=== PATIENT | male | born 1935 | race Caucasian/White ===

== ENCOUNTER → 2017-03-18 | Outpatient (CLI) | payer MEDICARE, BC ==
[2017-03-18 11:50] LABS: Prostate Specific Antigen 0.14 ng/mL (0.00-4.00)
== END | disposition home or self-care (01) ==
LOC: LABWHC1 09:24
PROVIDERS: ATTEND Urology
DX: C61 Malignant neoplasm of prostate (principal)
CPT/HCPCS: 36415; 84153; 84403

== ENCOUNTER 2018-07-10 11:09 | Day surgery (SDC) | payer MEDICARE, BC ==
[2018-07-07 11:16] VITALS: BMI 33.0
[~2018-07-10 11:09] MED LIST: DEXAMETHASONE SOD PHOSPHATE 10 MG/ML 1 ML VIAL IV ONE; HEPARIN SODIUM,PORCINE 5,000 UNIT/ML 1 ML VIAL SQ ONE; HYDROmorphone 0.5 MG/0.5 ML SYRINGE IVP PRN; LACTATED RINGERS 1,000 ML IV SCH; MIDAZOLAM 2 MG/2 ML VIAL IV PRN; ONDANSETRON 4 MG/2 ML VIAL IVP ONE; Pre Op ABX Message 1 EACH MISC MISCELLANE ONE
[2018-07-10] MEDS ORDERED: LIDOCAINE 1% 20 ML VIAL (10MG/ML) FOR IV START INTRADERMA ONE (11:44)
[2018-07-10] MEDS ORDERED: ceFAZolin IN SWFI 2 GM/20 ML SYRINGE IVP STA (12:25)
[2018-07-10] MEDS ORDERED: BUPIVACAIN-EPI 0.25%-1:200,000 30 ML VIAL SQ ONE ×3 (12:40)
[2018-07-10] MEDS ORDERED: fentaNYL (PF) 50 MCG/ML 2 ML AMP ONE (12:46)
[2018-07-10] MEDS ORDERED: PROPOFOL 10 MG/ML 20 ML VIAL IV ONE (12:46)
[2018-07-10] MEDS ORDERED: MIDAZOLAM 2 MG/2 ML VIAL ONE (12:46)
[2018-07-10] MEDS ORDERED: NALOXONE 0.4 MG/ML 1 ML VIAL IV PRN (13:28)
--- NOTE | 2018-07-10 13:30 | P.OP ---
Date of Procedure: 07/10/18 Procedure(s) Performed: PREOPERATIVE DIAGNOSIS: Posterior neck sebaceous cyst POSTOPERATIVE DIAGNOSIS: Same PROCEDURE: Excision with intermediate closure 2.5 cm SURGEON: Gutierrez EBL: 2 mL ANESTHESIA: Sedation plus local COMPLICATIONS: None OPERATIVE PROCEDURE: Patient placed in the left decubitus position. The posterior neck was prepped and draped in usual sterile fashion. The skin was localized. An elliptical incision encompassing a portion of the overlying skin took place removing the skin and underlying sebaceous cyst. The cyst measured 2.2 cm in size. This was fully excised. This was sent to pathology. The subcutaneous tissues were reapproximated using interrupted 3-0 Vicryl sutures. The closure length 2.5 cm. Skin was closed with 4-0 Monocryl sutures. Skin glue was then used. DISPOSITION: Stable to recovery room
[2018-07-10 13:37] VITALS: RESP 18
[2018-07-10 13:52] VITALS: BP 136/78; PULSE 67
== END 2018-07-10 14:14 | disposition home or self-care (01) ==
LOC: OR 11:09
PROVIDERS: ATTEND Surgery
DX: L72.0 Epidermal cyst (principal); I10 Essential (primary) hypertension; M19.90 Unspecified osteoarthritis, unspecified site; E78.5 Hyperlipidemia, unspecified; Z79.82 Long term (current) use of aspirin; Z79.899 Other long term (current) drug therapy; Z85.46 Personal history of malignant neoplasm of prostate
CPT/HCPCS: 88304; 11423; 12041; J2250; J1644; J1100; J0690; J2405; J3010; J2704

== ENCOUNTER → 2019-05-26 | Outpatient (CLI) | payer MEDICARE, BC | END | disposition home or self-care (01) | LOC: LABWHC1 07:05 | PROVIDERS: ATTEND Urology | DX: C61 Malignant neoplasm of prostate (principal); C79.51 Secondary malignant neoplasm of bone | CPT/HCPCS: 36415; 82310; 84153; 84403 ==

== ENCOUNTER → 2020-04-06 | Outpatient (CLI) | payer MEDICARE, BC ==
--- NOTE | 2020-04-06 16:00 | NM ---
EXAMINATION TYPE: NM bone scan whole body DATE OF EXAM: 04/06/2020 COMPARISON: NONE HISTORY: Prostate cancer Delayed whole-body scanning was performed following the injection of 24.6 mCi Tc 99m MDP. Images acq uired 3.5 hours post injection. FINDINGS: There is a focus of radiotracer accumulation in the left axillary region. This may be associated with the left scapula. There is increased radiotracer accumulation over the left iliac wing suspicious for metastatic diseas e. There is increased radiotracer accumulation within the regions of L2 and L4. Metastatic disease and c ompression deformities could be considered. Bilateral knee prostheses are evident. There is some increased radiotracer accumulation along the rig ht lateral distal femur may be related to the knee prosthesis. IMPRESSION: 1. Radiotracer accumulation within the left axillary region and at the left iliac superior wing suspi cious for metastatic disease. 2. Uptake within the L2 and L4 regions of the lumbar spine could be related to compression deformitie s and/or metastatic disease. 3. Uptake at the right knee distal right femoral region. Uptake related to prosthesis is felt to be m ore remote given the timeframe. Metastatic disease should be considered. Recommendations: 1. Plain film correlation of the lumbar spine, pelvis, right knee is recommended. 2. CT may better localize suspected left axillary uptake. 3. PET/CT may be useful as an alternative for evaluation of these findings.
== END | disposition home or self-care (01) ==
LOC: RADNMMAIN 10:00
PROVIDERS: ATTEND Urology
DX: C61 Malignant neoplasm of prostate (principal)
CPT/HCPCS: 78306; A9503

== ENCOUNTER → 2020-04-11 | Outpatient (CLI) | payer MEDICARE, BC ==
--- NOTE | 2020-04-11 14:45 | XR ---
EXAMINATION TYPE: XR knee complete RT DATE OF EXAM: 04/11/2020 CLINICAL HISTORY: pain TECHNIQUE: Three views of the right knee are obtained. COMPARISON: None. FINDINGS: There is no acute fracture/dislocation. Total knee arthroplasty with femoral and tibial co mponents appearing well seated. The overlying soft tissue appears unremarkable. IMPRESSION: There is no acute fracture or dislocation.ICD 10 NO FRACTURE, INITIAL EVALUATION
--- NOTE | 2020-04-11 14:45 | XR ---
EXAMINATION TYPE: XR pelvis AP view DATE OF EXAM: 04/11/2020 CLINICAL HISTORY: pain TECHNIQUE: Single view the pelvis is submitted. FINDINGS: No evidence for fracture, dislocation or bony lesion. Joint spaces are well-preserved. S I joints appear symmetric. IMPRESSION: 1. No acute fracture or dislocation seen. ICD 10 NO FRACTURE, INITIAL EVALUATION
--- NOTE | 2020-04-11 15:05 | XR ---
EXAMINATION TYPE: XR sacrum coccyx DATE OF EXAM: 04/11/2020 CLINICAL HISTORY: pain TECHNIQUE: Three views of the sacrum and coccyx are submitted. COMPARISON: None Sacral alae appear symmetric. No evidence for fracture or bony lesion. Sacroiliac joints are within normal limits. Visualized coccygeal segments are free of fracture or lesion. IMPRESSION: Normal study
--- NOTE | 2020-04-11 16:43 | XR ---
Thoracic spine and lumbar spine HISTORY: D 49.4, abnormal bone scan Correlation bone scan 04/06/2020 3 views of the thoracic spine, 3 views of the lumbar spine Thoracic and lumbar spondylosis is present, there is mild spinal curvature. Bone mineralization is re duced. Loss of disc height at intervertebral levels compatible degenerative disc disease. Bandlike area of radio pharmaceutical uptake present at the upper and lower lumbar spine are more typ ical of endplate compression deformities, some mild loss of height suspected L5, mild superior endpla te deformity questioned at L1. Multilevel vacuum phenomenon present at the intervertebral levels the lumbar spine. Loss of disc height is present at intervertebral levels of the lumbar spine. IMPRESSION: No convincing metastatic disease.
== END | disposition home or self-care (01) ==
LOC: RADXRMAIN 13:20
PROVIDERS: ATTEND Urology
DX: C61 Malignant neoplasm of prostate (principal)
CPT/HCPCS: 72072; 72100; 72170; 72220

== ENCOUNTER → 2021-03-21 | Outpatient (CLI) | payer MEDICARE, BC | END | disposition home or self-care (01) | LOC: LABWHC1 07:09 | PROVIDERS: ATTEND Urology | DX: C61 Malignant neoplasm of prostate (principal) | CPT/HCPCS: 36415; 84153 ==

== ENCOUNTER → 2022-06-06 | Outpatient (CLI) | payer MEDICARE, BC ==
[2022-06-06 15:33] LABS: Calcium 9.6 mg/dL (8.7-10.3); Prostate Specific Antigen 0.2 ng/mL (0.00-6.50); Testosterone 3.98 ng/mL (86.98-780.10)
== END | disposition home or self-care (01) ==
LOC: LABWHC1 09:25
PROVIDERS: ATTEND Urology
DX: C61 Malignant neoplasm of prostate (principal)
CPT/HCPCS: 36415; 82310; 84153; 84403

== ENCOUNTER → 2023-01-18 | Outpatient (CLI) | payer MEDICARE ==
--- NOTE | 2023-01-18 07:50 | CT ---
EXAMINATION TYPE: CT foot LT wo con DATE OF EXAM: 01/18/2023 COMPARISON: None HISTORY: eval for lower heel deysi placement CT DLP: 299 mGycm Automated exposure control for dose reduction was used. Contrast: None Technique: Axial images 0.5 mm thick sections. 3-D reconstructive images were obtained. Reconstructed images in the coronal and sagittal plane are obtained. FINDINGS: There is a medullary deysi which extends through the tibia and talus to the calcaneus. Fixation screws are present. Distal medullary deysi tip appears to be just below the inferior calcaneal cortex. No acut e fractures are evident. Extensive changes are present within the talus and tibia. Old arthrodesis th rough this region is likely present. Three-D reconstructed images performed by the technologist on a separate computer are reviewed. IMPRESSION: 1. MEDULLARY DEYSI WITHIN THE CALCANEUS WITH THE DISTAL TIP NEAR THE INFERIOR CALCANEAL CORTEX. FIXATIO N SCREWS ARE PRESENT.
== END | disposition home or self-care (01) ==
LOC: RADCTMAIN 07:01
PROVIDERS: ATTEND Orthopaedic Surgery Foot and Ankle Surgery
DX: S92.002A Unspecified fracture of left calcaneus, initial encounter for closed fracture (principal); M14.872 Arthropathies in other specified diseases classified elsewhere, left ankle and foot

== ENCOUNTER → 2023-03-08 | Outpatient (CLI) | payer MEDICARE ==
--- NOTE | 2023-03-08 09:39 | XR ---
EXAMINATION TYPE: XR abdomen 2V DATE OF EXAM: 03/08/2023 8:22 AM INDICATION: Patient age:Male; 87 years old; Reason for study: R14.0; COMPARISON: None. TECHNIQUE: Two views of the abdomen were obtained. FINDINGS: The bowel gas pattern is nonspecific without dilated loops of small or large bowel. There i s no evidence for organomegaly or pneumoperitoneum. The osseous structures are intact. Multilevel di sc degeneration changes of the spine. Calcifications project over the left kidney suggesting renal ca lculi. Fecal material and gas are demonstrated throughout the colon and rectum. IMPRESSION: 1. Nonspecific bowel gas pattern without radiographic evidence for acute process. 2. The level disc degeneration changes throughout spine. 3. Left renal calculi suggested. Consider CT renal stone protocol if further evaluation is required.
== END | disposition home or self-care (01) ==
LOC: RADXRMAIN 08:00
PROVIDERS: ATTEND Family Medicine
DX: R14.0 Abdominal distension (gaseous) (principal)
CPT/HCPCS: 74019

== ENCOUNTER → 2023-03-19 | Outpatient (CLI) | payer MEDICARE ==
[2023-03-19 14:48] LABS: African American GFR (CKD) 89 (>60 ml/min/1.73 sqM); Blood Urea Nitrogen 29 mg/dL (9-20); Non-African American GFR(CKD) 77 (>60 ml/min/1.73 sqM)
--- NOTE | 2023-03-20 12:43 | CT ---
EXAMINATION TYPE: CT abdomen pelvis wo/w con CT DLP: 3898 mGycm, Automated exposure control for dose reduction was used. DATE OF EXAM: 03/19/2023 4:07 PM COMPARISON: None. CLINICAL INDICATION:Male, 87 years old with history of R10.9; bloating, abd pain x5 weeks, h/o prosta te CA TECHNIQUE: Axial CT of the abdomen and pelvis. Sagittal and coronal reformats were created on a [employer] workstation. 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 Coronary artery calcifications and atherosclerosis. ABDOMEN LIVER: Nodular contour to liver with no mass visualized. There is suspected cyst present. GALLBLADDER AND BILE DUCTS: Unremarkable. PANCREAS: Unremarkable. SPLEEN: Probable cysts noted. Abnormal pancreatic tail appearance measuring at least 4.6 x 3.1 cm. Co mpared to the rest of the greater gland. ADRENAL GLANDS: Unremarkable. KIDNEYS AND URETERS: No evidence of hydronephrosis or renal calculus. Bilateral renal cysts some with calcification along the periphery measuring up to 8.9 cm on the left and 5. Potassium is in the righ t PELVIS BLADDER: Unremarkable REPRODUCTIVE: Prostate is enlarged in size measuring 4.6 cm in transverse dimension. ABDOMEN & PELVIS STOMACH AND BOWEL: No evidence of bowel obstruction. PERITONEUM/RETROPERITONEUM: No evidence of pneumoperitoneum or free fluid. VASCULATURE: No evidence of abdominal aortic aneurysm. MUSCULOSKELETAL: No acute osseous abnormalities. Moderate disc degeneration changes are present throu ghout the thoracolumbar spine. LYMPH NODES: No gross evidence for lymphadenopathy. SOFT TISSUE/ABDOMINAL WALL: Bilateral fat-containing inguinal hernias. IMPRESSION: 1. Pancreatic masslike area measuring 4.6 x 3.1 cm. Further evaluation recommended with MRI renal ma ss protocol. Comparisons with priors may be of benefit for stability. 2. Hepatic cirrhosis with ascites. 3. 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 4. Bilateral renal cyst with thin septations along the periphery. 5. Large left fat-containing inguinal hernia. 6. Prostatomegaly correlate serum PSA.
== END | disposition home or self-care (01) ==
LOC: RADCTMAIN 13:57
PROVIDERS: ATTEND Family Medicine
DX: I71.21 Aneurysm of the ascending aorta, without rupture (principal); K40.90 Unilateral inguinal hernia, without obstruction or gangrene, not specified as recurrent; K74.60 Unspecified cirrhosis of liver; N28.1 Cyst of kidney, acquired; N40.0 Benign prostatic hyperplasia without lower urinary tract symptoms; R18.8 Other ascites; Z85.46 Personal history of malignant neoplasm of prostate
CPT/HCPCS: 82565; 84520; 74178; 36415; Q9967

== ENCOUNTER 2023-03-20 15:36 | Inpatient (IN) | payer MEDICARE ==
[2023-03-20] MEDS ORDERED: SODIUM CHLORIDE 0.9% 1,000 ML IV STA (18:10)
[2023-03-20 19:52] LABS: ALT 20 U/L (4-49); AST 39 U/L (17-59); African American GFR (CKD) >90 (>60 ml/min/1.73 sqM); Albumin 3.6 g/dL (3.5-5.0); Alkaline Phosphatase 71 U/L (38-126); Amylase 45 U/L (30-110); Anion Gap 12 mmol/L; Blood Urea Nitrogen 30 mg/dL (9-20); Calcium 9.5 mg/dL (8.4-10.2); Carbon Dioxide 20 mmol/L (22-30); Chloride 98 mmol/L (98-107); Glucose 108 mg/dL (74-99); Lipase 118 U/L (23-300); Non-African American GFR(CKD) 81 (>60 ml/min/1.73 sqM); Sodium 130 mmol/L (137-145); Total Bilirubin 0.8 mg/dL (0.2-1.3); Total Protein 6.2 g/dL (6.3-8.2)
--- NOTE | 2023-03-20 20:16 | CT ---
EXAMINATION TYPE: CT abdomen pelvis wo con CT DLP: 1491.2 mGycm, Automated exposure control for dose reduction was used. DATE OF EXAM: 03/20/2023 7:42 PM COMPARISON: CT abdomen pelvis most recent from one day prior CLINICAL INDICATION:Male, 87 years old with history of abdominal pain; Bloating, abdomen pain x5wks. Hx of prostate CA. TECHNIQUE: Axial CT of the abdomen and pelvis. Sagittal and coronal reformats were created on a [employer] workstation. Contrast used: mL of , (none if empty) Oral contrast used: without Oral Contrast (none if empty) FINDINGS: LOWER CHEST: Ascending thoracic aorta aneurysm measuring up to 5.4, previously 5.8 cm. Likely due to differences in phases of cardiac heartbeat. Coronary artery calcifications and atherosclerosis. Fluid tracks along the distal esophagus ABDOMEN LIVER: Nodular contour to liver with no mass visualized. There is suspected cyst present. GALLBLADDER AND BILE DUCTS: Unremarkable. PANCREAS: Unremarkable. SPLEEN: Probable cysts noted. Abnormal pancreatic tail appearance measuring at least 4.6 x 3.1 cm. Co mpared to the rest of the greater gland. ADRENAL GLANDS: Unremarkable. KIDNEYS AND URETERS: No evidence of hydronephrosis or renal calculus. Bilateral renal cysts some with calcification along the periphery measuring up to 8.9 cm on the left and 5. Potassium is in the righ t PELVIS BLADDER: Excreted IV contrast and a nondistended urinary bladder. REPRODUCTIVE: Prostate is enlarged in size measuring 4.6 cm in transverse dimension. ABDOMEN & PELVIS STOMACH AND BOWEL: No evidence of bowel obstruction. PERITONEUM/RETROPERITONEUM: No evidence of pneumoperitoneum or free fluid. Omental edema is present VASCULATURE: No evidence of abdominal aortic aneurysm. MUSCULOSKELETAL: No acute osseous abnormalities. Moderate disc degeneration changes are present throu ghout the thoracolumbar spine. LYMPH NODES: No gross evidence for lymphadenopathy. SOFT TISSUE/ABDOMINAL WALL: Bilateral fat-containing inguinal hernias. IMPRESSION: Essentially no change from one day prior 1. Pancreatic masslike area measuring 4.6 x 3.1 cm. Further evaluation recommended with MRI renal ma ss protocol. Comparisons with priors may be of benefit for stability. 2. Hepatic cirrhosis with large ascites. 3. 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 4. Bilateral renal cyst with thin septations along the periphery. 5. Large left fat-containing inguinal hernia. 6. Prostatomegaly correlate serum PSA.
[2023-03-20 20:20] LABS: Basophils % (A) 0 %; Eosinophils # (A) 0.2 k/uL (0-0.7); Eosinophils % (A) 1 %; HCT 42.7 % (39.0-53.0); HGB 14.1 gm/dL (13.0-17.5); Lymphocytes # (A) 1.3 k/uL (1.0-4.8); Lymphocytes % (A) 9 %; MCH 30.6 pg (25.0-35.0); MCV 92.7 fL (80.0-100.0); Mean Platelet Volume 7.5; Monocytes # (A) 0.9 k/uL (0-1.0); Monocytes % (A) 6 %; Neutrophils # (A) 12.2 k/uL (1.3-7.7); Neutrophils % (A) 83 %; Platelet Count 504 k/uL (150-450); RBC 4.61 m/uL (4.30-5.90); WBC 14.6 k/uL (3.8-10.6)
--- NOTE | 2023-03-20 20:28 | ED ---
Abdominal Pain HPI - General Chief Complaint: Abdominal Pain Stated Complaint: Chest [place],Stomach issues Time Seen by Provider: 03/20/23 18:08 Source: patient, family, RN notes reviewed, old records reviewed Mode of arrival: wheelchair Limitations: no limitations - History of Present Illness Initial Comments: This is a 87-year-old male who presents today for evaluation of abdominal pain significant abdominal swelling which is severe, patient also severe abdominal pain in nature has had imaging testing done as an outpatient computed for recurrent testing today. Patient states he can't comfortable can't sit rate cancer flat can't take a deep breath secondary severe pain belly swelling. No prior history of similar, no history of ascites MD Complaint: abdominal pain -: hour(s), days(s) Location: diffuse Radiation: epigastric, suprapubic Migration to: epigastric, suprapubic Severity: moderate Severity scale (1-10): 7 Quality: stabbing, aching, fullness Consistency: constant Improves With: nothing Worsens With: nothing Context: sick contacts Associated Symptoms: nausea, vomiting Treatments Prior to Arrival: other (0) - Related Data Home Medications Medication Instructions Recorded Confirmed Celecoxib [CeleBREX] 200 mg PO DAILY 06/21/14 03/20/23 Aspirin [Adult Low Dose Aspirin EC] 81 mg PO DAILY 05/15/16 03/20/23 Glucosam/Constantino-Msm1/C/Julio/Bosw 1 tab PO DAILY 05/15/16 03/20/23 [Glucosamine-Chondroitin Tablet] Multivitamins, Thera [Multivitamin 1 tab PO DAILY 05/15/16 03/20/23 (formulary)] Tamsulosin [Flomax] 0.4 mg PO DAILY 05/15/16 03/20/23 Bicalutamide [Casodex] 50 mg PO DAILY 07/07/18 03/20/23 Denosumab [Prolia] 60 mg SQ Q180D 07/07/18 03/20/23 Docusate Sodium [Dok] 200 mg PO DAILY 07/07/18 03/20/23 Krill Oil 500 mg PO DAILY 07/07/18 03/20/23 calcium polycarbophiL [Fibercon] 625 mg PO DAILY 07/07/18 03/20/23 Cholecalciferol [Vitamin D3 (25 25 mcg PO DAILY 03/20/23 03/20/23 Mcg = 1000 Iu)] Cyanocobalamin (Vitamin B-12) 2,500 mcg PO DAILY 03/20/23 03/20/23 [Vitamin B-12] Triptorelin Pamoate [Trelstar] 3.75 mg IV Q180D 03/20/23 03/20/23 lisinopriL 30 mg PO DAILY 03/20/23 03/20/23 Allergies Allergy/AdvReac Type Severity Reaction Status Date / Time No Known Allergies Allergy Verified 03/20/23 20:20 Review of Systems ROS Statement: Those systems with pertinent positive or pertinent negative responses have been documented in the HPI. ROS Other: All systems not noted in ROS Statement are negative. Past Medical History Past Medical History: Cancer, Hypertension, Osteoarthritis (OA), Prostate Disorder Additional Past Medical History / Comment(s): Constipation. Enlarged prostate. CA PROSTATE 2016 EST. "SPOT AT T6 VERTEBRAE." BORDERLINE HYPERLIPIDEMIA. SEBACEOUS CYST NECK. History of Any Multi-Drug Resistant Organisms: None Reported Past Surgical History: Hernia Repair, Joint Replacement, Orthopedic Surgery Additional Past Surgical History / Comment(s): Edilson knee replacements, ORIF Edilson ankles(lynette and screws), Edilson cataracts. HERNIA'S. FINGER SURGERY. Past Anesthesia/Blood Transfusion Reactions: No Reported Reaction Past Psychological History: No Psychological Hx Reported Past Alcohol Use History: None Reported Past Drug Use History: None Reported - Past Family History Mother Family Medical History: Cancer Father Family Medical History: Cancer Son(s) Family Medical History: Deep Vein Thrombosis (DVT) General Exam Limitations: no limitations General appearance: alert, in no apparent distress, anxious Head exam: Present: atraumatic, normocephalic, normal inspection Eye exam: Present: normal appearance, PERRL, EOMI. Absent: scleral icterus, conjunctival injection, periorbital swelling ENT exam: Present: normal exam, mucous membranes moist Neck exam: Present: normal inspection. Absent: tenderness, meningismus, lymphadenopathy Respiratory exam: Present: normal lung sounds bilaterally. Absent: respiratory distress, wheezes, rales, rhonchi, stridor Cardiovascular Exam: Present: regular rate, normal rhythm, normal heart sounds. Absent: systolic murmur, diastolic murmur, rubs, gallop, clicks GI/Abdominal exam: Present: soft, distended, tenderness, guarding, rebound, normal bowel sounds, other (This is likely significant ascites). Absent: rigid Extremities exam: Present: normal inspection, full ROM, normal capillary refill. Absent: tenderness, pedal edema, joint swelling, calf tenderness Back exam: Present: normal inspection Neurological exam: Present: alert, oriented X3, CN II-XII intact Psychiatric exam: Present: normal affect, normal mood Skin exam: Present: warm, dry, intact, normal color. Absent: rash Course Vital Signs 03/20/23 03/20/23 15:39 21:12 Temperature 96.8 F L Pulse Rate 89 86 Respiratory 18 18 Rate Blood Pressure 135/79 116/82 O2 Sat by Pulse 96 98 Oximetry - Reevaluation(s) Reevaluation #1: 03/20/23 22:16 Medical record is reviewed Reevaluation #2: 03/20/23 22:16 A shunt informed results questions answered Reevaluation #3: 03/20/23 22:16 Patient with severe pain and shortness of breath Reevaluation #4: 03/20/23 22:19 Was pt. sent in by a medical professional or institution? @ -no Did you speak to anyone other than the patient for history? @ -no Did you review nursing and triage notes? @ -agree Were old charts reviewed? @ -no Differential Diagnosis? @ -prior EKG interpreted by me (3pts min.)? @ -no X-rays interpreted by me (1pt min.)? @ -no CT interpreted by me (1pt min.)? @ -yes U/S interpreted by me (1pt. min.)? @ -no What testing was considered but not performed? (CT, X-rays, U/S, labs)? Why? @ -no What meds were considered but not given? Why? @ -no Did you discuss the management of the patient with other professionals? @ -no Did you reconcile home meds? @ -no Was smoking cessation discussed for >3mins.? @ -no Was critical care preformed (if so, how long)? @ -no Were there social determinants of health that impacted care today? How? (Homelessness, low income, unemployed, alcoholism, drug addiction, transportation, low edu. Level, literacy, decrease access to med. care, detention, rehab)? @ -no Was there de-escalation of care discussed even if they declined? (Discuss DNR or withdrawal of care, Hospice)? @ -no What co-morbidities impacted this encounter? (DM, HTN, Smoking, COPD, CAD, Cancer, CVA, Hep., AIDS, mental health diagnosis, sleep apnea, morbid obesity)? @ -none Was patient admitted / discharged? @ -87 male to the ER and has severe abdominal pain. Severe ascites will admit for paracentesis diagnosis of ascites cause Admitted Undiagnosed new problem with uncertain prognosis? @ -no Drug Therapy requiring intensive monitoring for toxicity (Heparin, Nitro, Insulin, Cardizem)? @ -no Were any procedures done? @ -no Diagnosis/symptom? @ -Acute ascites secondary to pancreatic cancer Acute, or Chronic, or Acute on Chronic? @ -no Uncomplicated (without systemic symptoms) or Complicated (systemic symptoms)? @ -uncomplicated Side effects of treatment? @ -no Exacerbation, Progression, or Severe Exacerbation] @ -no Poses a threat to life or bodily function? @ -no not immediate future Reevaluation #5: 03/20/23 22:19 Differential Abdominal Pain Men: Appendicitis, cholecystitis, diverticulosis, ischemic bowel, pancreatitis, hepatitis, UTI, gastroenteritis, AAA, incarcerated hernia, bowel obstruction, constipation, inflammatory bowel, hepatitis, peptic ulcer disease, splenic infarction, perforated viscus, testicular torsion, this is not meant to be an all-inclusive list - Consultations Consultation #1: Spoke with admitting physicians agreeable to admit this patient Medical Decision Making - Medical Decision Making 87 male to the ER and has severe abdominal pain. Severe ascites will admit for paracentesis diagnosis of ascites cause - Lab Data Result diagrams: 03/21/23 06:17 03/21/23 06:17 Lab Results 03/20/23 03/20/23 03/20/23 Range/Units 19:11 19:11 19:11 WBC 14.6 H (3.8-10.6) k/uL RBC 4.61 (4.30-5.90) m/uL Hgb 14.1 (13.0-17.5) gm/dL Hct 42.7 (39.0-53.0) % MCV 92.7 (80.0-100.0) fL MCH 30.6 (25.0-35.0) pg MCHC 33.0 (31.0-37.0) g/dL RDW 13.0 (11.5-15.5) % Plt Count 504 H (150-450) k/uL MPV 7.5 Neutrophils % 83 % Lymphocytes % 9 % Monocytes % 6 % Eosinophils % 1 % Basophils % 0 % Neutrophils # 12.2 H (1.3-7.7) k/uL Lymphocytes # 1.3 (1.0-4.8) k/uL Monocytes # 0.9 (0-1.0) k/uL Eosinophils # 0.2 (0-0.7) k/uL Basophils # 0.0 (0-0.2) k/uL Sodium 130 L (137-145) mmol/L Potassium 5.0 (3.5-5.1) mmol/L Chloride 98 (98-107) mmol/L Carbon Dioxide 20 L (22-30) mmol/L Anion Gap 12 mmol/L BUN 30 H (9-20) mg/dL Creatinine 0.75 (0.66-1.25) mg/dL Est GFR (CKD-EPI)AfAm >90 (>60 ml/min/1.73 sqM) Est GFR (CKD-EPI)NonAf 81 (>60 ml/min/1.73 sqM) Glucose 108 H (74-99) mg/dL Plasma Lactic Acid Celestine (0.7-2.0) mmol/L Calcium 9.5 (8.4-10.2) mg/dL Total Bilirubin 0.8 (0.2-1.3) mg/dL AST 39 (17-59) U/L ALT 20 (4-49) U/L Alkaline Phosphatase 71 (38-126) U/L Troponin I 0.019 (0.000-0.034) ng/mL Total Protein 6.2 L (6.3-8.2) g/dL Albumin 3.6 (3.5-5.0) g/dL Amylase 45 (30-110) U/L Lipase 118 (23-300) U/L Urine Color Urine Appearance (Clear) Urine pH (5.0-8.0) Ur Specific [place] (1.001-1.035) Urine Protein (Negative) Urine Glucose (UA) (Negative) Urine Ketones (Negative) Urine Blood (Negative) Urine Nitrite (Negative) Urine Bilirubin (Negative) Urine Urobilinogen (<2.0) mg/dL Ur Leukocyte Esterase (Negative) Urine RBC (0-5) /hpf Urine WBC (0-5) /hpf Ur Squamous Epith Cells (0-4) /hpf Urine Bacteria (None) /hpf Urine Mucus (None) /hpf 03/20/23 03/20/23 Range/Units 20:07 21:16 WBC (3.8-10.6) k/uL RBC (4.30-5.90) m/uL Hgb (13.0-17.5) gm/dL Hct (39.0-53.0) % MCV (80.0-100.0) fL MCH (25.0-35.0) pg MCHC (31.0-37.0) g/dL RDW (11.5-15.5) % Plt Count (150-450) k/uL MPV Neutrophils % % Lymphocytes % % Monocytes % % Eosinophils % % Basophils % % Neutrophils # (1.3-7.7) k/uL Lymphocytes # (1.0-4.8) k/uL Monocytes # (0-1.0) k/uL Eosinophils # (0-0.7) k/uL Basophils # (0-0.2) k/uL Sodium (137-145) mmol/L Potassium (3.5-5.1) mmol/L Chloride (98-107) mmol/L Carbon Dioxide (22-30) mmol/L Anion Gap mmol/L BUN (9-20) mg/dL Creatinine (0.66-1.25) mg/dL Est GFR (CKD-EPI)AfAm (>60 ml/min/1.73 sqM) Est GFR (CKD-EPI)NonAf (>60 ml/min/1.73 sqM) Glucose (74-99) mg/dL Plasma Lactic Acid Celestine 2.0 (0.7-2.0) mmol/L Calcium (8.4-10.2) mg/dL Total Bilirubin (0.2-1.3) mg/dL AST (17-59) U/L ALT (4-49) U/L Alkaline Phosphatase (38-126) U/L Troponin I (0.000-0.034) ng/mL Total Protein (6.3-8.2) g/dL Albumin (3.5-5.0) g/dL Amylase (30-110) U/L Lipase (23-300) U/L Urine Color Yellow Urine Appearance Cloudy (Clear) Urine pH 5.5 (5.0-8.0) Ur Specific [place] 1.044 H (1.001-1.035) Urine Protein Trace H (Negative) Urine Glucose (UA) Negative (Negative) Urine Ketones Negative (Negative) Urine Blood Negative (Negative) Urine Nitrite Negative (Negative) Urine Bilirubin Negative (Negative) Urine Urobilinogen <2.0 (<2.0) mg/dL Ur Leukocyte Esterase Negative (Negative) Urine RBC 5 (0-5) /hpf Urine WBC 2 (0-5) /hpf Ur Squamous Epith Cells 1 (0-4) /hpf Urine Bacteria Rare H (None) /hpf Urine Mucus Many H (None) /hpf - Radiology Data Radiology results: report reviewed (CT of the abdomen and pelvis suffers from significant ascites and pancreatic mass), image reviewed Disposition Clinical Impression: Abdominal pain, Ascites, Mass of pancreas Disposition: ADMITTED IP TO THIS [facility] Condition: Fair Is patient prescribed a controlled substance at d/c from ED?: No Time of Disposition: 21:40
[2023-03-20] MEDS ORDERED: NALOXONE 0.4 MG/ML 1 ML VIAL IV PRN (21:42)
[2023-03-20] MEDS ORDERED: MORPHINE SULFATE 4 MG/ML SYRINGE IV PRN (21:42)
[2023-03-20] MEDS ORDERED: ONDANSETRON 4 MG/2 ML VIAL IVP PRN (21:42)
[2023-03-20] MEDS ORDERED: LORazepam 0.5 MG TAB PO PRN (21:42)
[2023-03-20 21:58] LABS: Appearance,Urine Cloudy (Clear); Bacteria,Urine Rare /hpf; Bilirubin,Urine Negative (Negative); Blood,Urine Negative (Negative); Color,Urine Yellow; Glucose,Urine (UA) Negative (Negative); Ketones,Urine Negative (Negative); Leukocyte Esterase,Urine Negative (Negative); Mucus,Urine Many /hpf; Nitrite,Urine Negative (Negative); PH, Urine 5.5 (5.0-8.0); Protein,Urine Trace (Negative); RBC,Urine 5 /hpf (0-5); Specific Gravity,Urine 1.044 (1.001-1.035); Squamous Epithelial Cell,Urine 1 /hpf (0-4); Urobilinogen,Urine <2.0 mg/dL (<2.0); WBC,Urine 2 /hpf (0-5)
[2023-03-21 06:55] LABS: Basophils % (A) 0 %; Eosinophils # (A) 0.1 k/uL (0-0.7); Eosinophils % (A) 1 %; HCT 40.7 % (39.0-53.0); HGB 13.2 gm/dL (13.0-17.5); Lymphocytes # (A) 1.1 k/uL (1.0-4.8); Lymphocytes % (A) 9 %; MCH 29.9 pg (25.0-35.0); MCHC 32.4 g/dL (31.0-37.0); MCV 92.4 fL (80.0-100.0); Mean Platelet Volume 7.2; Monocytes # (A) 0.7 k/uL (0-1.0); Monocytes % (A) 6 %; Neutrophils # (A) 10.4 k/uL (1.3-7.7); Neutrophils % (A) 84 %; Platelet Count 441 k/uL (150-450); RDW 13.3 % (11.5-15.5); WBC 12.5 k/uL (3.8-10.6)
[2023-03-21 07:26] LABS: ALT 19 U/L (4-49); AST 32 U/L (17-59); African American GFR (CKD) 89 (>60 ml/min/1.73 sqM); Albumin 3.4 g/dL (3.5-5.0); Alkaline Phosphatase 67 U/L (38-126); Anion Gap 11 mmol/L; Blood Urea Nitrogen 31 mg/dL (9-20); Calcium 9.2 mg/dL (8.4-10.2); Carbon Dioxide 24 mmol/L (22-30); Chloride 96 mmol/L (98-107); Glucose 101 mg/dL (74-99); Magnesium 2.3 mg/dL (1.6-2.3); Non-African American GFR(CKD) 77 (>60 ml/min/1.73 sqM); Potassium 4.9 mmol/L (3.5-5.1); Sodium 131 mmol/L (137-145); Total Bilirubin 0.9 mg/dL (0.2-1.3); Total Protein 5.9 g/dL (6.3-8.2)
[2023-03-21] MEDS ORDERED: MELOXICAM 7.5 MG TAB PO SCH (09:00)
[2023-03-21] MEDS ORDERED: lisinopriL 10 MG TAB PO SCH (09:00)
[2023-03-21] MEDS ORDERED: CYANOCOBALAMIN 500 MCG TAB PO SCH (09:00)
[2023-03-21] MEDS ORDERED: CHOLECALCIFEROL 25 MCG (1000 IU) TABLET PO SCH (09:00)
[2023-03-21] MEDS ORDERED: TAMSULOSIN 0.4 MG CAP.ER.24H PO SCH (09:00)
[2023-03-21] MEDS ORDERED: MULTIVITAMINS, THERA 1 EACH TAB PO SCH (09:00)
[2023-03-21] MEDS ORDERED: BICALUTAMIDE 50 MG TAB PO SCH (09:00)
[2023-03-21] MEDS ORDERED: DOCUSATE 100 MG CAP PO SCH (09:00)
[2023-03-21] MEDS ORDERED: NON FORMULARY DRUG (Krill Oil [Krill Oil] 500 MG Capsule) PO SCH (09:00)
[2023-03-21] MEDS ORDERED: NON FORMULARY DRUG (Glucosam/Chon-Msm1/C/Mang/Bosw [Glucosamine-Chondroitin Tablet] 1 EACH PO SCH (09:00)
[2023-03-21 09:50] LABS: Partial Thromboplastin Time 24.6 sec (22.0-30.0); Prothrombin Time 10.7 sec (9.0-12.0)
[2023-03-21] MEDS ORDERED: HYDROmorphone 0.5 MG/0.5 ML SYRINGE IVP PRN (10:32)
[2023-03-21] MEDS ORDERED: HYDROcodone/APAP 5-325MG 1 EACH TAB PO PRN (10:32)
--- NOTE | 2023-03-21 11:43 | HP ---
HISTORY AND PHYSICAL CHIEF COMPLAINT: Abdominal pain and distention. HISTORY OF PRESENT ILLNESS: This is an 87-year-old gentleman with a past medical history of multiple medical problems including hypertension. He had a previous history of CA prostate, had a recent surgery on the left foot. The patient had progressive abdominal distention and pain. The patient came to [facility], and a CT scan of the abdomen and pelvis showed pancreatic mass and as well as hepatic cirrhosis with ascites, ascending thoracic aortic aneurysm, and multiple abnormalities also. The patient was admitted for further evaluation and treatment. There is no history of any fever, rigor, or chills at this time. PAST MEDICAL HISTORY: History of prostate cancer and hypertension. Rest of the history and rest of the chart are also reviewed. HOME MEDICATIONS: Reviewed, lisinopril. Doses and rest of the medications are reviewed. ALLERGIES: None. FAMILY HISTORY: No history of cancer in the family. SOCIAL HISTORY: No history of smoking or alcohol. REVIEW OF SYSTEMS: Fourteen-point review is negative except as mentioned earlier. PHYSICAL EXAMINATION: VITAL SIGNS: Pulse 98, blood pressure 121/82, respirations 20. HEENT: Conjunctivae are normal. NECK: No jugular venous distention. CARDIOVASCULAR: No murmur. RESPIRATORY: Breath sounds diminished at the bases. ABDOMEN: Soft, distended, tense. Ascites present. Nontender. No guarding. No rigidity. Bowel sounds diminished. LEGS: Left foot is status post surgery, on the cast. NERVOUS SYSTEM: No focal deficits. SKIN: No ulcers or rashes. JOINTS: No active deforming arthropathy. LABORATORY DATA: WBC 12.5. Rest of the labs are noted. ASSESSMENT: 1. Abdominal distention and pain with ascites, possibly a malignant ascites versus cirrhosis liver with ascites. 2. Pancreatic mass. 3. History of prostate cancer. 4. Hypertension. 5. History of degenerative joint disease. 6. History of constipation. 7. Multiple medical issues. RECOMMENDATIONS AND DISCUSSION: In this 87-year-old gentleman presented with multiple complex medical issues, we will monitor the patient closely. Consult Interventional Radiology for therapeutic and diagnostic aspiration. Send the fluid for culture and as well as cytology. Obtain Surgical evaluation also. Symptomatic treatment. Home medications will be continued. Pain management. Prognosis is guarded because of multiple complex medical issues. Further recommendations to follow. See orders for further details. MMODL / IJN: [id number] /
[2023-03-21 14:13] VITALS: RESP 17; TEMP 97.9
--- NOTE | 2023-03-21 14:32 | US ---
Ultrasound-guided paracentesis. DATE OF EXAM: 03/21/2023 CLINICAL HISTORY: Ascites The procedure was discussed with the patient. The risks, complications, benefits, and alternatives we re discussed and any questions were answered. Informed consent was obtained. The patient was placed s upine on the ultrasound table and prepped and draped in the usual sterile fashion. All elements of maximal barrier technique were utilized. Under ultrasound guidance, access into the right lower quadrant was obtained, via the paracentesis catheter system and direct ultrasound guidanc e. Approximately 10.2 liters of straw-colored fluid was removed. The patient was stable throughout the p rocedure and remained stable upon discharge from Department of Radiology. IMPRESSION: Successful paracentesis under ultrasound guidance.
[2023-03-21] MEDS: ALBUMIN HUMAN 25% 50 ML in EMPTY BAG 1 BAG IVPB SCH ×4 (15:13→17:02)
[2023-03-21 15:35] VITALS: PULSE 108
[2023-03-21 15:36] VITALS: BP 96/58
--- NOTE | 2023-03-21 21:50 | P.DS ---
Providers Date of admission: 03/20/23 21:43 Expected date of discharge: 03/21/23 Attending physician: Asim Roberson Primary care physician: Duc Schaffer [facility] Course: Final diagnosis Abdominal distention with pain with ascites possibly a malignant ascites versus cirrhosis of the liver ascites status post approximately 12 L removed paracentesis Pancreatic mass noted on CT History of prostate cancer Hypertension History of degenerative joint disease History of constipation GI prophylaxis DVT prophylaxis Full code Discharge disposition Patient is being discharged in a stable condition with guarded prognosis to home. Patient will follow-up with Dr. Schaffer in the outpatient setting upon discharge. Patient is to follow-up with urology along with oncology out of [facility] as scheduled. Total time taken is greater than 35 minutes. Hospital course This is a 87-year-old male who was recently admitted with abdominal pain and distention noted to have significant ascites status post paracentesis with approximately 12 L removed. Patient did receive albumin post paracentesis. Concerns for malignancy and also noted to have a pancreatic mass noted on CT. Patient reports to feeling significantly improved post paracentesis will like to go home and follow-up outpatient. Currently no reports of chest pain, shortness of breath, or palpitations. Patient is afebrile. No reports of nausea or vomiting and patient is tolerating diet. Patient will be discharged home today. Physical exam: Gen: This is a 87-year-old male, awake, alert and oriented 3, well-developed, well-nourished, obese HEENT: Head is atraumatic, normocephalic. Pupils equal, round. Sclerae is anicteric. NECK: Supple. No JVD. No lymphadenopathy. No thyromegaly. LUNGS: Clear to auscultation. No wheezes or rhonchi. No intercostal retractions. HEART: Regular rate and rhythm. No murmur. ABDOMEN: Somewhat taut, distended, tympanic Bowel sounds are present. No masses. No tenderness. EXTREMITIES: No pedal edema. No calf tenderness. NEUROLOGICAL: Patient is awake, alert and oriented x3. Cranial nerves 2 through 12 are grossly intact. Please refer to medication reconciliation sheet for a list of medications. The impression and plan of care has been dictated by Lucinda Kline, Nurse Practitioner as directed. Dr. Da MD I have performed a history and examination and MDM of this patient, discussed the same with the dictator, and agree with the dictator's assessment and plan as written ,documented as a scribe. Based on total visit time, I have performed more than 50% of the visit. Patient Condition at Discharge: Fair Plan - Discharge Summary Discharge Rx Participant: No New Discharge Prescriptions: Continue Celecoxib [CeleBREX] 200 mg PO DAILY Tamsulosin [Flomax] 0.4 mg PO DAILY Glucosam/Constantino-Msm1/C/Julio/Bosw [Glucosamine-Chondroitin Tablet] 1 tab PO DAILY Aspirin [Adult Low Dose Aspirin EC] 81 mg PO DAILY Multivitamins, Thera [Multivitamin (formulary)] 1 tab PO DAILY Bicalutamide [Casodex] 50 mg PO DAILY calcium polycarbophiL [Fibercon] 625 mg PO DAILY Denosumab [Prolia] 60 mg SQ Q180D Docusate Sodium [Dok] 200 mg PO DAILY Krill Oil 500 mg PO DAILY lisinopriL 30 mg PO DAILY Cyanocobalamin (Vitamin B-12) [Vitamin B-12] 2,500 mcg PO DAILY Cholecalciferol [Vitamin D3 (25 Mcg = 1000 Iu)] 25 mcg PO DAILY Triptorelin Pamoate [Trelstar] 3.75 mg IV Q180D Discharge Medication List Celecoxib [CeleBREX] 200 mg PO DAILY 06/21/14 [History] Aspirin [Adult Low Dose Aspirin EC] 81 mg PO DAILY 05/15/16 [History] Glucosam/Constantino-Msm1/C/Julio/Bosw [Glucosamine-Chondroitin Tablet] 1 tab PO DAILY 05/15/16 [History] Multivitamins, Thera [Multivitamin (formulary)] 1 tab PO DAILY 05/15/16 [History] Tamsulosin [Flomax] 0.4 mg PO DAILY 05/15/16 [History] Bicalutamide [Casodex] 50 mg PO DAILY 07/07/18 [History] Denosumab [Prolia] 60 mg SQ Q180D 07/07/18 [History] Docusate Sodium [Dok] 200 mg PO DAILY 07/07/18 [History] Krill Oil 500 mg PO DAILY 07/07/18 [History] calcium polycarbophiL [Fibercon] 625 mg PO DAILY 07/07/18 [History] Cholecalciferol [Vitamin D3 (25 Mcg = 1000 Iu)] 25 mcg PO DAILY 03/20/23 [History] Cyanocobalamin (Vitamin B-12) [Vitamin B-12] 2,500 mcg PO DAILY 03/20/23 [History] Triptorelin Pamoate [Trelstar] 3.75 mg IV Q180D 03/20/23 [History] lisinopriL 30 mg PO DAILY 03/20/23 [History] Follow up Appointment(s)/Referral(s): [facility], [NON-STAFF] - 1 Week Duc Schaffer DO [Primary Care Provider] - 04/15/23 3:15 pm (This is the soonest they could get you in.) Ganesh Olivera MD [STAFF PHYSICIAN] - 1 Week (office will call you with appt time and date) Patient Instructions/Handouts: Ascites (DC), Paracentesis (GEN) Activity/Diet/Wound Care/Special Instructions: activity limited until follow up follow up with pcp on discharge follow up with GI specialist of [facility] Discharge Disposition: HOME SELF-CARE
== END 2023-03-21 17:56 | disposition home health service (06) | DRG 434 ==
LOC: EC 15:36 → 5NMEDONC 21:43
PROVIDERS: ADMIT Hospitalist; ATTEND Hospitalist
PROC: 0W9G3ZZ Drainage of Peritoneal Cavity, Percutaneous Approach (ICD-10-PCS; principal; 2023-03-21)
DX: K70.31 Alcoholic cirrhosis of liver with ascites (principal); K86.89 Other specified diseases of pancreas; I71.20 Thoracic aortic aneurysm, without rupture, unspecified; I10 Essential (primary) hypertension; M19.90 Unspecified osteoarthritis, unspecified site; N40.0 Benign prostatic hyperplasia without lower urinary tract symptoms; Z79.82 Long term (current) use of aspirin; Z79.1 Long term (current) use of non-steroidal anti-inflammatories (NSAID); Z79.899 Other long term (current) drug therapy; Z85.46 Personal history of malignant neoplasm of prostate; Z96.653 Presence of artificial knee joint, bilateral
CPT/HCPCS: 36415; 49083; 74176; 80053; 81001; 82150; 83605; 83690; 83735; 84100; 84153; 84484; 85025; 85610; 85730; 88108; 88305; 96360; 96361; 99285

== ENCOUNTER → 2023-03-25 | Outpatient (CLI) | payer MEDICARE ==
--- NOTE | 2023-03-28 08:45 | MR ---
EXAMINATION TYPE: MR abdomen wo/w con DATE OF EXAM: 03/25/2023 10:41 PM INDICATION: Patient age:Male; 87 years old; Reason for study: K86.89; Pt's abdomen is extremely painful and filling with fluid - pt had fluid jose ined yesterday, Hx of prostate CA COMPARISON: CT scan abdomen from 03/20/2023. TECHNIQUE: Multiplanar multi-sequence imaging was performed without contrast. Post contrast imaging was performed. Post IV contrast subtraction images were also submitted for review. IV Contrast: 11.5ml cc Gadavist FINDINGS: LOWER CHEST: No gross irregularity. ABDOMEN Distended abdomen which limits evaluation. Liver: Few scattered high T2 cysts one of which has some internal complexity measuring up to 18 mm. O ther more simple appearing cysts are present. There is nodular contour to liver. Gallbladder and Bile ducts: Unremarkable. Pancreas: There is an area of delayed enhancement within the pancreatic tail measuring 4.1 x 2.5 cent imeters which progressively enhances on delayed imaging. On series 1001 image 428 there are some duct al dilatation extending into this mass. Spleen: Chronic high T2 signal cyst. Adrenal glands: Unremarkable. Kidneys: Right renal cysts which are high T2 signal measuring up to 4. Centimeters additional smaller cysts are also present. Left renal cysts are present measuring up to 8.6 cm. Dilation of the cistern a chili near the aorta at the Stomach and Bowel: Unremarkable as visualized. Peritoneum: No evidence of pneumoperitoneum. There is a large amount ascites. Vasculature: Unremarkable. No aortic aneurysm. Musculoskeletal: The osseous structures appear intact. Lymph Nodes: No gross evidence for lymphadenopathy. Limited evaluation secondary to large volume of a scites. Abdominal wall: Unremarkable. IMPRESSION: Limited evaluation secondary to abdominal distention with ascites. * There is a delayed enhancing lesion within the pancreatic tail best appreciated on and postcontras t imaging series 1001 image 432. This measures up to 4.1 x 2.5 cm's. There is delayed enhancement wit h some ductal dilatation extending away from that into the distal portion of the tail. Correlate with serum markers for pancreatic cancer C19-9. Findings concerning for pancreatic malignancy. * Large bilateral renal cysts left greater than right. Hepatic and splenic cysts are also present. * Large ascites with cirrhosis.
== END | disposition home or self-care (01) ==
LOC: RADMRIMAIN 21:15
PROVIDERS: ATTEND Family Medicine
DX: K63.89 Other specified diseases of intestine (principal); N28.1 Cyst of kidney, acquired; K86.89 Other specified diseases of pancreas; K83.8 Other specified diseases of biliary tract; R18.8 Other ascites; K74.60 Unspecified cirrhosis of liver; D73.4 Cyst of spleen
CPT/HCPCS: 74183; A9585

== ENCOUNTER 2023-03-29 11:16 | Inpatient (IN) | payer MEDICARE ==
[2023-03-29] MEDS ORDERED: SODIUM CHLORIDE 0.9% 500 ML 500 ML IV ONE (11:33)
[2023-03-29] MEDS ORDERED: FUROSEMIDE 10 MG/ML 4 ML VIAL IV STA (11:33)
--- NOTE | 2023-03-29 11:36 | ED ---
General Adult HPI - General Chief complaint: Shortness of Breath Stated complaint: fluid retention Time Seen by Provider: 03/29/23 11:25 Source: patient, family, EMS, RN notes reviewed, old records reviewed Mode of arrival: EMS Limitations: no limitations - History of Present Illness Initial comments: This is 87-year-old male who presents emergency Department with a newly diagnosed pancreatic tumor. Patient also has developed ascites and was seen in the hospital week and a half ago. Patient was discharged after he had a paracentesis done and he was discharged on Saturday. Patient states since that time the abdomen continues to get larger his been unable to get a hold of the GI doc in town and so it is now making it difficult to lie down and get any sleep and is making it difficult to eat because he gets nauseous and vomits. Patient states he also has had a harder time breathing as a heaviness grown larger. Patient denies any fever chills per patient denies any nausea currently. Patient denies any pain currently. Patient denies any chest pain or difficulty breathing recently. - Related Data Home Medications Medication Instructions Recorded Confirmed Celecoxib [CeleBREX] 200 mg PO DAILY 06/21/14 03/20/23 Aspirin [Adult Low Dose Aspirin EC] 81 mg PO DAILY 05/15/16 03/20/23 Glucosam/Constantino-Msm1/C/Julio/Bosw 1 tab PO DAILY 05/15/16 03/20/23 [Glucosamine-Chondroitin Tablet] Multivitamins, Thera [Multivitamin 1 tab PO DAILY 05/15/16 03/20/23 (formulary)] Tamsulosin [Flomax] 0.4 mg PO DAILY 05/15/16 03/20/23 Bicalutamide [Casodex] 50 mg PO DAILY 07/07/18 03/20/23 Denosumab [Prolia] 60 mg SQ Q180D 07/07/18 03/20/23 Docusate Sodium [Dok] 200 mg PO DAILY 07/07/18 03/20/23 Krill Oil 500 mg PO DAILY 07/07/18 03/20/23 calcium polycarbophiL [Fibercon] 625 mg PO DAILY 07/07/18 03/20/23 Cholecalciferol [Vitamin D3 (25 25 mcg PO DAILY 03/20/23 03/20/23 Mcg = 1000 Iu)] Cyanocobalamin (Vitamin B-12) 2,500 mcg PO DAILY 03/20/23 03/20/23 [Vitamin B-12] Triptorelin Pamoate [Trelstar] 3.75 mg IV Q180D 03/20/23 03/20/23 lisinopriL 30 mg PO DAILY 03/20/23 03/20/23 Allergies Allergy/AdvReac Type Severity Reaction Status Date / Time No Known Allergies Allergy Verified 03/20/23 20:20 Review of Systems ROS Statement: Those systems with pertinent positive or pertinent negative responses have been documented in the HPI. ROS Other: All systems not noted in ROS Statement are negative. Past Medical History Past Medical History: Cancer, Hypertension, Osteoarthritis (OA), Prostate Disorder Additional Past Medical History / Comment(s): Constipation. Enlarged prostate. CA PROSTATE 2016 EST. "SPOT AT T6 VERTEBRAE." BORDERLINE HYPERLIPIDEMIA. SEBACEOUS CYST NECK. History of Any Multi-Drug Resistant Organisms: None Reported Past Surgical History: Hernia Repair, Joint Replacement, Orthopedic Surgery Additional Past Surgical History / Comment(s): Edilson knee replacements, ORIF Edilson ankles(lynette and screws), Edilson cataracts. HERNIA'S. FINGER SURGERY. Past Anesthesia/Blood Transfusion Reactions: No Reported Reaction Past Psychological History: No Psychological Hx Reported Smoking Status: Former smoker Past Alcohol Use History: None Reported Past Drug Use History: None Reported - Past Family History Mother Family Medical History: Cancer Father Family Medical History: Cancer Son(s) Family Medical History: Deep Vein Thrombosis (DVT) General Exam - General Exam Comments Initial Comments: GENERAL: Patient is well-developed and well-nourished. Patient is nontoxic and well- hydrated and is in no acute distress. ENT: Neck is soft and supple. No significant lymphadenopathy is noted. Oropharynx is clear. Moist mucous membranes. Neck has full range of motion without eliciting any pain. EYES: The sclera were anicteric and conjunctiva were pink and moist. Extraocular movements were intact and pupils were equal round and reactive to light. Eyelids were unremarkable. PULMONARY: Unlabored respirations. Good breath sounds bilaterally. No audible rales rhonchi or wheezing was noted. CARDIOVASCULAR: There is a regular rate and rhythm without any murmurs gallops or rubs. ABDOMEN: Abdomen is significantly distended consistent with ascites. SKIN: Skin is clear with no lesions or rashes and otherwise unremarkable. NEUROLOGIC: Patient is alert and oriented x3. Cranial nerves II through XII are grossly intact. Motor and sensory are also intact. Normal speech, volume and content. Symmetrical smile. MUSCULOSKELETAL: Normal extremities with adequate strength and full range of motion. No lower extremity swelling or edema. No calf tenderness. LYMPHATICS: No significant lymphadenopathy is noted PSYCHIATRIC: Normal psychiatric evaluation. Limitations: no limitations Course Vital Signs 03/29/23 03/29/23 03/29/23 11:21 11:22 11:24 Pulse Rate 73 Respiratory 18 22 Rate Blood Pressure 117/95 O2 Sat by Pulse 96 97 Oximetry 03/29/23 03/29/23 03/29/23 11:30 12:00 12:30 Pulse Rate 93 106 H 110 H Respiratory 24 20 16 Rate Blood Pressure 117/95 127/94 O2 Sat by Pulse 94 L 95 Oximetry 03/29/23 12:36 Pulse Rate 98 Respiratory Rate Blood Pressure 150/60 O2 Sat by Pulse Oximetry Medical Decision Making - Medical Decision Making Was pt. sent in by a medical professional or institution (, PA, CLINICAL ORTHOPTIST, urgent care, hospital, or fpc...) When possible be specific @ -No Did you speak to anyone other than the patient for history (EMS, parent, family, police, friend...)? What history was obtained from this source @ -No Did you review nursing and triage notes (agree or disagree)? Why? @ -I reviewed and agree with nursing and triage notes Were old charts reviewed (outside hosp., previous admission, EMS record, old EKG, old radiological studies, urgent care reports/EKG's, fpc records)? Report findings @ -Reviewed prior lab work prior charting on this patient Differential Diagnosis (chest pain, altered mental status, abdominal pain women, abdominal pain men, vaginal bleeding, weakness, fever, dyspnea, syncope, headache, dizziness, GI bleed, back pain, seizure, CVA, palpatations, mental health, musculoskeletal)? @ -Differential Abdominal Pain Men: Appendicitis, cholecystitis, diverticulosis, ischemic bowel, pancreatitis, hepatitis, UTI, gastroenteritis, AAA, incarcerated hernia, bowel obstruction, constipation, inflammatory bowel, hepatitis, peptic ulcer disease, splenic infarction, perforated viscus, testicular torsion, this is not meant to be an all-inclusive list EKG interpreted by me (3pts min.). @ -As above X-rays interpreted by me (1pt min.). @ -None done CT interpreted by me (1pt min.). @ -None done U/S interpreted by me (1pt. min.). @ -None done What testing was considered but not performed or refused? (CT, X-rays, U/S, labs)? Why? @ -None What meds were considered but not given or refused? Why? @ -None Did you discuss the management of the patient with other professionals (professionals i.e. , PA, CLINICAL ORTHOPTIST, lab, RT, psych nurse, high school social science teacher, telephone lines repairer, teacher, human resource officer, senior case manager)? Give summary @ -Dr. NOVA agreed to admit the patient admitted the patient wrote admitting orders Was smoking cessation discussed for >3mins.? @ -No Was critical care preformed (if so, how long)? @ -No Were there social determinants of health that impacted care today? How? (Homelessness, low income, unemployed, alcoholism, drug addiction, transportation, low edu. Level, literacy, decrease access to med. care, detention, rehab)? @ -No Was there de-escalation of care discussed even if they declined (Discuss DNR or withdrawal of care, Hospice)? DNR status @ -No What co-morbidities impacted this encounter? (DM, HTN, Smoking, COPD, CAD, Cancer, CVA, ARF, Chemo, Hep., AIDS, mental health diagnosis, sleep apnea, mor bid obesity)? @ -None Was patient admitted / discharged? Hospital course, mention meds given and route, prescriptions, significant lab abnormalities, going to OR and other pertinent info. @ -Patient had no nausea no pain while in the emergency department so I spoke with Dr. Rizvi he did agree to admit the patient I admitted the patient I c onsulted interventional radiology Undiagnosed new problem with uncertain prognosis? @ -No Drug Therapy requiring intensive monitoring for toxicity (Heparin, Nitro, Insulin, Cardizem)? @ -No Were any procedures done? @ -No Diagnosis/symptom? @ -Ascites Acute, or Chronic, or Acute on Chronic? @ -Acute Uncomplicated (without systemic symptoms) or Complicated (systemic symptoms)? @ -Complicated Side effects of treatment? @ -No Exacerbation, Progression, or Severe Exacerbation? @ -No Poses a threat to life or bodily function? How? (Chest pain, [place], [place], pneumonia, PE, COPD, DKA, ARF, appy, cholecystitis, CVA, Diverticulitis, Homicidal, Suicidal, threat to staff... and all critical care pts) @ -No - Lab Data Result diagrams: 03/29/23 11:52 03/29/23 11:52 Lab Results 03/29/23 03/29/23 Range/Units 11:52 11:52 WBC 15.0 H (3.8-10.6) k/uL RBC 4.55 (4.30-5.90) m/uL Hgb 13.5 (13.0-17.5) gm/dL Hct 40.9 (39.0-53.0) % MCV 89.9 (80.0-100.0) fL MCH 29.6 (25.0-35.0) pg MCHC 32.9 (31.0-37.0) g/dL RDW 13.4 (11.5-15.5) % Plt Count 490 H (150-450) k/uL MPV 7.4 Neutrophils % 86 % Lymphocytes % 7 % Monocytes % 5 % Eosinophils % 1 % Basophils % 0 % Neutrophils # 12.9 H (1.3-7.7) k/uL Lymphocytes # 1.1 (1.0-4.8) k/uL Monocytes # 0.8 (0-1.0) k/uL Eosinophils # 0.1 (0-0.7) k/uL Basophils # 0.0 (0-0.2) k/uL Sodium 131 L (137-145) mmol/L Potassium 4.5 (3.5-5.1) mmol/L Chloride 101 (98-107) mmol/L Carbon Dioxide 22 (22-30) mmol/L Anion Gap 8 mmol/L BUN 30 H (9-20) mg/dL Creatinine 0.81 (0.66-1.25) mg/dL Est GFR (CKD-EPI)AfAm >90 (>60 ml/min/1.73 sqM) Est GFR (CKD-EPI)NonAf 79 (>60 ml/min/1.73 sqM) Glucose 118 H (74-99) mg/dL Calcium 8.3 L (8.4-10.2) mg/dL Total Bilirubin 0.8 (0.2-1.3) mg/dL AST 37 (17-59) U/L ALT 22 (4-49) U/L Alkaline Phosphatase 75 (38-126) U/L Total Protein 5.5 L (6.3-8.2) g/dL Albumin 3.0 L (3.5-5.0) g/dL Lipase 82 (23-300) U/L Disposition Clinical Impression: Ascites Disposition: ADMITTED IP TO THIS HOSP Referrals: Duc Schaffer DO [Primary Care Provider] - 1-2 days Time of Disposition: 13:35
[2023-03-29 12:16] LABS: ALT 22 U/L (4-49); AST 37 U/L (17-59); African American GFR (CKD) >90 (>60 ml/min/1.73 sqM); Alkaline Phosphatase 75 U/L (38-126); Anion Gap 8 mmol/L; Blood Urea Nitrogen 30 mg/dL (9-20); Calcium 8.3 mg/dL (8.4-10.2); Carbon Dioxide 22 mmol/L (22-30); Chloride 101 mmol/L (98-107); Glucose 118 mg/dL (74-99); Lipase 82 U/L (23-300); Non-African American GFR(CKD) 79 (>60 ml/min/1.73 sqM); Potassium 4.5 mmol/L (3.5-5.1); Sodium 131 mmol/L (137-145); Total Bilirubin 0.8 mg/dL (0.2-1.3); Total Protein 5.5 g/dL (6.3-8.2)
[2023-03-29 12:36] LABS: Basophils % (A) 0 %; Eosinophils # (A) 0.1 k/uL (0-0.7); Eosinophils % (A) 1 %; HCT 40.9 % (39.0-53.0); HGB 13.5 gm/dL (13.0-17.5); Lymphocytes # (A) 1.1 k/uL (1.0-4.8); Lymphocytes % (A) 7 %; MCH 29.6 pg (25.0-35.0); MCHC 32.9 g/dL (31.0-37.0); MCV 89.9 fL (80.0-100.0); Mean Platelet Volume 7.4; Monocytes # (A) 0.8 k/uL (0-1.0); Monocytes % (A) 5 %; Neutrophils # (A) 12.9 k/uL (1.3-7.7); Neutrophils % (A) 86 %; Platelet Count 490 k/uL (150-450); RBC 4.55 m/uL (4.30-5.90); RDW 13.4 % (11.5-15.5)
--- NOTE | 2023-03-29 12:53 | XR ---
EXAMINATION TYPE: XR chest 2V DATE OF EXAM: 03/29/2023 COMPARISON: NONE HISTORY: Difficulty in breathing. TECHNIQUE: Frontal and lateral views of the chest are obtained. FINDINGS: Some increased interstitial markings bilaterally favor chronic parenchymal fibrosis greates t in the posterior left lung base . Difficult to exclude some acute infiltrate at this level without prior comparison. The cardiac silhouette size is upper limits of normal with ectatic thoracic aorta. The osseous structures are demineralized. IMPRESSION: As above.
[2023-03-29 21:39] VITALS: RESP 16
--- NOTE | 2023-03-29 21:45 | P.HPIM ---
History of Present Illness This is a pleasant 79 years old male with past medical history of hypertension, prostate cancer, osteoarthritis, hyperlipidemia, bilateral knee replacement status post ORIF. PCPs Dr. 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 Patient presents with son at bedside, patient states last month he was diagnosed through MRI of the abdomen about pancreatic mass and he was diagnosed with asci gardenia and underwent paracentesis, he presents with similar problem with increased abdominal distention which prevented him from sleeping well or 8 appropriately. This associated with vomiting, 3 times as patient states twice yesterday and once this morning. He has some abdominal pain and discomfort for the last week its mild to moderate felt like fullness with no significant bleeding or precipitating factors However patient denies chest pain dyspnea or coughing. No neurological symptoms or urinary symptoms He denies diarrhea. Patient showing tachycardia, which is mild, rest of vitals are stable Mild leukocytosis at 15,000, platelet count 490. Sodium 131, rest of the MP is unremarkable. Liver Enzymes not elevated. Bilirubin is 0.8. Chest x-ray: Increased interstitial markings bilaterally.Chronic parenchymal fibrosis difficult to exclude some acute infiltrate of the level without prior C ompression. EKG showing normal sinus rhythm at [address]-T changes. Emergency room patient received Lasix and held CT of the abdomen and pelvis done at that time Review of Systems Review of systems CONSTITUTIONAL: No fever, no malaise, no fatigue. HEENT: No recent visual problems or hearing problems. Denied any sore throat. CARDIOVASCULAR: No orthopnea, PND, no palpitations, no syncope. PULMONARY: No shortness of breath, no cough, no hemoptysis. GASTROINTESTINAL: No diarrhea, no nausea, no vomiting, no abdominal pain. Normoactive bowel sounds. NEUROLOGICAL: No headaches, no weakness, no numbness. HEMATOLOGICAL: Denies any bleeding or petechiae. GENITOURINARY: Denies any burning micturition, frequency, or urgency. MUSCULOSKELETAL/RHEUMATOLOGICAL: Denies any joint pain, swelling, or any muscle pain. ENDOCRINE: Denies any polyuria or polydipsia. Past Medical History Past Medical History: Cancer, Hypertension, Osteoarthritis (OA), Prostate Disorder Additional Past Medical History / Comment(s): Constipation. Enlarged prostate. CA PROSTATE 2016 EST. "SPOT AT T6 VERTEBRAE." BORDERLINE HYPERLIPIDEMIA. SEBACEOUS CYST NECK. History of Any Multi-Drug Resistant Organisms: None Reported Past Surgical History: Hernia Repair, Joint Replacement, Orthopedic Surgery Additional Past Surgical History / Comment(s): Edilson knee replacements, ORIF Edilson ankles(lynette and screws), Edilson cataracts. HERNIA'S. FINGER SURGERY. Past Anesthesia/Blood Transfusion Reactions: No Reported Reaction Past Psychological History: No Psychological Hx Reported Smoking Status: Former smoker Past Alcohol Use History: None Reported Past Drug Use History: None Reported - Past Family History Mother Family Medical History: Cancer Father Family Medical History: Cancer Son(s) Family Medical History: Deep Vein Thrombosis (DVT) Medications and Allergies Home Medications Medication Instructions Recorded Confirmed Type Celecoxib [CeleBREX] 200 mg PO DAILY 06/21/14 03/29/23 History Aspirin [Adult Low Dose Aspirin EC] 81 mg PO DAILY 05/15/16 03/29/23 History Glucosam/Constantino-Msm1/C/Julio/Bosw 1 tab PO DAILY 05/15/16 03/29/23 History [Glucosamine-Chondroitin Tablet] Multivitamins, Thera [Multivitamin 1 tab PO DAILY 05/15/16 03/29/23 History (formulary)] Tamsulosin [Flomax] 0.4 mg PO DAILY 05/15/16 03/29/23 History Bicalutamide [Casodex] 50 mg PO DAILY 07/07/18 03/29/23 History Denosumab [Prolia] 60 mg SQ Q180D 07/07/18 03/29/23 History Docusate Sodium [Dok] 200 mg PO DAILY 07/07/18 03/29/23 History Krill Oil 500 mg PO DAILY 07/07/18 03/29/23 History calcium polycarbophiL [Fibercon] 625 mg PO DAILY 07/07/18 03/29/23 History Cholecalciferol [Vitamin D3 (25 25 mcg PO DAILY 03/20/23 03/29/23 History Mcg = 1000 Iu)] Cyanocobalamin (Vitamin B-12) 2,500 mcg PO DAILY 03/20/23 03/29/23 History [Vitamin B-12] Triptorelin Pamoate [Trelstar] 3.75 mg IV Q180D 03/20/23 03/29/23 History lisinopriL 30 mg PO DAILY 03/20/23 03/29/23 History Furosemide [Lasix] 20 mg PO DAILY 03/29/23 03/29/23 History Spironolactone 50 mg PO DAILY 03/29/23 03/29/23 History Allergies Allergy/AdvReac Type Severity Reaction Status Date / Time No Known Allergies Allergy Verified 03/29/23 14:34 Physical Exam Vitals: Vital Signs Pulse Resp BP Pulse Ox 03/29/23 12:36 98 150/60 03/29/23 12:30 110 H 16 127/94 03/29/23 12:00 106 H 20 117/95 95 03/29/23 11:30 93 24 94 L 03/29/23 11:24 22 03/29/23 11:22 97 03/29/23 11:21 73 18 117/95 96 Intake and Output 03/28/23 03/29/23 03/29/23 22:59 06:59 14:59 Other: Weight 113.398 kg GENERAL: The patient is alert and oriented x3, not in any acute distress. Well developed, well nourished. HEENT: Pupils are round and equally reacting to light. EOMI. No scleral icterus. No conjunctival pallor. Normocephalic, atraumatic. No pharyngeal erythema. No thyromegaly. CARDIOVASCULAR: S1 and S2 present. No murmurs, rubs, or gallops. PULMONARY: Chest is clear to auscultation, no wheezing , no crackles. -ABDOMEN: Soft, nontender, distended, normoactive bowel sounds. No palpable organomegaly. MUSCULOSKELETAL: No joint swelling or deformity. EXTREMITIES: No cyanosis, clubbing, or pedal edema. NEUROLOGICAL: Gross neurological examination did not reveal any focal deficits. SKIN: No rashes. no petechiae. Results CBC & Chem 7: 03/29/23 11:52 03/29/23 11:52 Labs: Abnormal Lab Results - Last 24 Hours (Table) 03/29/23 03/29/23 Range/Units 11:52 11:52 WBC 15.0 H (3.8-10.6) k/uL Plt Count 490 H (150-450) k/uL Neutrophils # 12.9 H (1.3-7.7) k/uL Sodium 131 L (137-145) mmol/L BUN 30 H (9-20) mg/dL Glucose 118 H (74-99) mg/dL Calcium 8.3 L (8.4-10.2) mg/dL Total Protein 5.5 L (6.3-8.2) g/dL Albumin 3.0 L (3.5-5.0) g/dL Assessment and Plan Assessment: Abdominal distention secondary to recurrent ascites, which is suspected malignant ascites versus liver cirrhosis Pancreatic mass seen on last CAT scan measuring 4.6 x 3.1 cm, suspicious for malignancy leukocytosis, Chronic since 10 days ago Hypertension Hyperlipidemia History of prostate cancer with a large prostate History of osteoarthritis status post bilateral knee replacement Plan: Consults interventional daily for paracentesis (however there is no IR surface or GI service at this facility today or this coming weekend tomorrow on the day after) I discussed with the patient and son at bedside prior to transfer the patient to different facility as a higher level of care or weight Saturday, patient and family wanted him to be transferred I contacted [facility] and the GI fellow Dr. Dutta the don't have IR service to do paracentesis either during this weekend and they have to wait until Saturday again. Hence I called [facility] and discussed the case with the transfer team and they accepted the patient but they want insurance authorization for the transfer, I contacted to staff who called the insurance number at the back of his cardiac and they informed the staff he is not being covered and or his diabetic customer Bedside nurse made in ER 6 is going to contact test case developer if available today or most likely tomorrow morning. In the meantime was started the patient on IV Lasix and fluid restriction Monitor wbc. Currently there is no overt signs of infection and antibiotics are not warranted Labs and medication were reviewed.. Continue same treatment. Continue with symptomatic treatment. Resume home medication. Monitor labs and vitals. DVT and GI prophylaxis. Further recommendations as per clinical course of the patient DVT prophylaxis: Subcutaneous heparin GI Prophylaxis: Pepcid Prognosis is guarded
[2023-03-29] MEDS: FUROSEMIDE 10 MG/ML 4 ML VIAL IV SCH (22:28)
[2023-03-30 07:59] VITALS: BP 119/84; PULSE 85; TEMP 97.3
[2023-03-30] MEDS ORDERED: SPIRONOLACTONE 25 MG TAB PO SCH (09:00)
[2023-03-30] MEDS ORDERED: BICALUTAMIDE 50 MG TAB PO SCH (09:00)
[2023-03-30] MEDS ORDERED: HEPARIN SODIUM,PORCINE/PF 5,000 UNIT/0.5 ML SYRINGE SQ SCH (09:00)
[2023-03-30] MEDS ORDERED: TAMSULOSIN 0.4 MG CAP.ER.24H PO SCH (09:00)
[2023-03-30] MEDS ORDERED: ASPIRIN 81 MG PO SCH (09:00)
[2023-03-30] MEDS ORDERED: DOCUSATE 100 MG CAP PO SCH (09:00)
[2023-03-30] MEDS: FUROSEMIDE 10 MG/ML 4 ML VIAL IV SCH (09:10)
[2023-03-30 09:25] LABS: Basophils # (A) 0.05 X 10*3/uL (0.00-0.10); Basophils % (A) 0.3 %; Eosinophils # (A) 0.19 X 10*3/uL (0.04-0.35); Eosinophils % (A) 1.2 %; HCT 40.9 % (39.6-50.0); HGB 13.1 d/dL (12.0-15.0); Lymphocytes # (A) 1.64 X 10*3/uL (0.90-5.00); MCH 29.7 pg (27.0-32.0); MCV 92.7 FL (80.0-97.0); Mean Platelet Volume 8.7 FL (9.5-12.2); Monocytes # (A) 1.07 X 10*3/uL (0.20-1.00); Monocytes % (A) 6.5 %; NRBC Per 100 WBC 0 X 10*3/uL (0.00-0.01); Neutrophils # (A) 13.21 X 10*3/uL (1.80-7.70); Neutrophils % (A) 80.7 %; Platelet Count 494 X 10*3/uL (140-440); RBC 4.41 X 10*6/uL (4.40-5.60); RDW 13.6 % (11.5-14.5); WBC 16.37 X 10*3/uL (4.50-10.00)
[2023-03-30 11:51] LABS: Blood Urea Nitrogen 31.9 mg/dL (9.0-27.0); Calcium 8.7 mg/dL (8.7-10.3); Carbon Dioxide 20.7 mmol/L (21.6-31.8); Chloride 100 mmol/L (96-109); Glucose 113 mg/dL (70-110); Magnesium 2.3 mg/dL (1.5-2.4); Potassium 4.5 mmol/L (3.5-5.5); Sodium 136 mmol/L (135-145)
--- NOTE | 2023-03-30 21:07 | P.DS ---
Providers Date of admission: 03/29/23 13:38 Attending physician: Servando Lindsey MD Primary care physician: Duc Schaffer [facility] Course: Diagnoses: Abdominal distention secondary to recurrent ascites, which is suspected malignant ascites, less likely liver cirrhosis Pancreatic mass seen on last CAT scan measuring 4.6 x 3.1 cm, suspicious for malignancy . 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 No strong evidence of infection. Keep monitoring Hypertension Hyperlipidemia History of prostate cancer with a large prostate History of osteoarthritis status post bilateral knee replacement Hospital course: This is a pleasant 79 years old male with past medical history of hypertension, prostate cancer, osteoarthritis, hyperlipidemia, bilateral knee replacement status post ORIF. 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 However cytology came back positive for malignant cells from upper GI source versus pancreatic source which is the most likely diagnosis as he has known to have pancreatic mass (after patient gave me consent verbally I talked to his daughter and son-in-law updated them with the results of the cytology with recommendation to follow up with oncologist at [facility] and they agree) Patient presents because of recurrent ascites causing him trouble breathing, eating and discomfort. There is no GI or IR service in this vessel to doing this week and, however patient could not wait until Saturday as he does not feel comfortable and family requested to be transferred to a tertiary care center for her level of care, after several attempts [facility] accepted the patient for transfer. Patient stable to transfer in guarded prognosis Physical exam Gen: patient is a AAOx3, no distress CVS: S1-S2, RRR, no murmur Lungs: B/L CTA, no wheezing -Abdomen: soft, generalized abdominal distention, no tenderness, positive bowel sounds Extremity: no leg edema or induration Time spent more than 35 minutes Plan - Discharge Summary Discharge Rx Participant: Yes New Discharge Prescriptions: No Action RX: Celecoxib [CeleBREX] 200 mg PO DAILY RX: Tamsulosin [Flomax] 0.4 mg PO DAILY RX: Glucosam/Constantino-Msm1/C/Julio/Bosw [Glucosamine-Chondroitin Tablet] 1 tab PO DAILY RX: Aspirin [Adult Low Dose Aspirin EC] 81 mg PO DAILY RX: Multivitamins, Thera [Multivitamin (formulary)] 1 tab PO DAILY RX: Bicalutamide [Casodex] 50 mg PO DAILY RX: calcium polycarbophiL [Fibercon] 625 mg PO DAILY RX: Denosumab [Prolia] 60 mg SQ Q180D RX: Docusate Sodium [Dok] 200 mg PO DAILY RX: Krill Oil 500 mg PO DAILY RX: lisinopriL 30 mg PO DAILY RX: Cyanocobalamin (Vitamin B-12) [Vitamin B-12] 2,500 mcg PO DAILY RX: Cholecalciferol [Vitamin D3 (25 Mcg = 1000 Iu)] 25 mcg PO DAILY RX: Triptorelin Pamoate [Trelstar] 3.75 mg IV Q180D Furosemide [Lasix] 20 mg PO DAILY RX: Spironolactone 50 mg PO DAILY Discharge Medication List RX: Celecoxib [CeleBREX] 200 mg PO DAILY 06/21/14 [History] RX: Aspirin [Adult Low Dose Aspirin EC] 81 mg PO DAILY 05/15/16 [History] RX: Glucosam/Constantino-Msm1/C/Julio/Bosw [Glucosamine-Chondroitin Tablet] 1 tab PO DAILY 05/15/16 [History] RX: Multivitamins, Thera [Multivitamin (formulary)] 1 tab PO DAILY 05/15/16 [History] RX: Tamsulosin [Flomax] 0.4 mg PO DAILY 05/15/16 [History] RX: Bicalutamide [Casodex] 50 mg PO DAILY 07/07/18 [History] RX: Denosumab [Prolia] 60 mg SQ Q180D 07/07/18 [History] RX: Docusate Sodium [Dok] 200 mg PO DAILY 07/07/18 [History] RX: Krill Oil 500 mg PO DAILY 07/07/18 [History] RX: calcium polycarbophiL [Fibercon] 625 mg PO DAILY 07/07/18 [History] RX: Cholecalciferol [Vitamin D3 (25 Mcg = 1000 Iu)] 25 mcg PO DAILY 03/20/23 [History] RX: Cyanocobalamin (Vitamin B-12) [Vitamin B-12] 2,500 mcg PO DAILY 03/20/23 [History] RX: Triptorelin Pamoate [Trelstar] 3.75 mg IV Q180D 03/20/23 [History] RX: lisinopriL 30 mg PO DAILY 03/20/23 [History] Furosemide [Lasix] 20 mg PO DAILY 03/29/23 [History] RX: Spironolactone 50 mg PO DAILY 03/29/23 [History] Follow up Appointment(s)/Referral(s): Duc Schaffer DO [Primary Care Provider] - 1-2 days Discharge Disposition: [facility]
== END 2023-03-30 16:40 | disposition short-term general hospital (02) | DRG 436 ==
LOC: EC 11:16 → 5NMEDONC 13:38
PROVIDERS: ADMIT Internal Medicine; ATTEND Internal Medicine
DX: C25.9 Malignant neoplasm of pancreas, unspecified (principal); R18.0 Malignant ascites; I10 Essential (primary) hypertension; E78.5 Hyperlipidemia, unspecified; Z96.653 Presence of artificial knee joint, bilateral; M19.90 Unspecified osteoarthritis, unspecified site; N40.0 Benign prostatic hyperplasia without lower urinary tract symptoms; R00.0 Tachycardia, unspecified; Z85.46 Personal history of malignant neoplasm of prostate; Z79.82 Long term (current) use of aspirin; Z79.1 Long term (current) use of non-steroidal anti-inflammatories (NSAID); Z79.899 Other long term (current) drug therapy; Z87.891 Personal history of nicotine dependence
CPT/HCPCS: 36415; 71046; 80048; 80053; 83690; 83735; 85025; 87635; 93005; 96361; 96374; 99285

== ENCOUNTER 2023-04-10 08:55 | Day surgery (SDC) | payer MEDICARE ==
[2023-04-10 09:36] LABS: Mean Platelet Volume 7.4; Platelet Count 605 k/uL (150-450)
[2023-04-10 09:42] LABS: Prothrombin Time 10.7 sec (9.0-12.0)
[2023-04-10 09:53] LABS: African American GFR (CKD) 56 (>60 ml/min/1.73 sqM); Non-African American GFR(CKD) 48 (>60 ml/min/1.73 sqM)
[2023-04-10] MEDS: ALBUMIN HUMAN 25% 50 ML in EMPTY BAG 1 BAG IVPB SCH ×3 (10:00→10:50)
[2023-04-10 10:54] VITALS: RESP 18; TEMP 98.3
[2023-04-10 12:12] VITALS: BP 115/74; PULSE 80
--- NOTE | 2023-04-10 14:19 | US ---
Ultrasound-guided paracentesis. DATE OF EXAM: 04/10/2023 CLINICAL HISTORY: Ascites The procedure was discussed with the patient. The risks, complications, benefits, and alternatives we re discussed and any questions were answered. Informed consent was obtained. The patient was placed s upine on the ultrasound table and prepped and draped in the usual sterile fashion. All elements of maximal barrier technique were utilized. Under ultrasound guidance, access into the right lower quadrant was obtained, via the paracentesis catheter system and direct ultrasound guidanc e. Approximately 5.3 liters of straw-colored fluid was removed. The patient was stable throughout the pr ocedure and remained stable upon discharge from Department of Radiology. IMPRESSION: Successful paracentesis under ultrasound guidance.
== END 2023-04-10 11:40 | disposition home or self-care (01) ==
LOC: RADPROMAIN 08:55
PROVIDERS: ATTEND Internal Medicine Gastroenterology
DX: R18.8 Other ascites (principal)
CPT/HCPCS: 82565; 85049; 85610; 36415; 49083; P9047